=== PATIENT | female | born 1995 | race Caucasian/White ===

== ENCOUNTER 2023-11-18 13:49 | Emergency (ER) | payer MEDICAID, SELFPAY ==
[2023-11-18] VITALS (12 sets, daily range): BP systolic 88–130; BP diastolic 68–93; PULSE 58–98; RESP 15–20; TEMP 36.4–36.8; O2SAT 16–100; BMI 26.9
--- NOTE | ~2023-11-18 | CT_ITS ---
EXAMINATION: CT HEAD WITHOUT CONTRAST CLINICAL INFORMATION: Lethargy. COMPARISON: None available. TECHNIQUE: Contiguous axial imaging was performed from the skull base to vertex without intravenous administration of contrast. This CT examination was performed using dose optimization techniques as appropriate, variously including the following: *Automated exposure control. *Adjustment of mA and/or kV according to patient size (this includes techniques or standardized protocols for targeted exams where dose is matched to indication/reason for exam; i.e. extremities or head). *Use of iterative reconstruction technique. DLP: 793 mGy-cm FINDINGS: Moderately motion degraded exam. There is no evidence of acute intracranial hemorrhage or edematous territorial infarction. Haji-white matter differentiation is preserved. There is no abnormal attenuation within the brain parenchyma. The ventricles are normal in morphology and size. No evidence for obstructive hydrocephalus. No abnormal mass effect or midline shift. The suprasellar cistern remains widely patent. Normal positioning of the cerebellar tonsils. No extra-axial fluid collections. No acute soft tissue or osseous abnormalities. Mild mucosal thickening of the paranasal sinuses. The mastoid air cells and middle ear cavities are clear. CT/CT head/brain wo IV con IMPRESSION: No evidence of acute intracranial hemorrhage or edematous territorial infarction.
--- NOTE | ~2023-11-18 | XR_ITS ---
EXAMINATION: XR CHEST CLINICAL INFORMATION: Shortness of breath COMPARISON: None available. TECHNIQUE: Frontal view of the chest was obtained. FINDINGS: No significant abnormality is noted involving the heart, lungs, mediastinum, bony thorax or soft tissues. XR/XR chest 1V IMPRESSION: Unremarkable examination.
--- NOTE | 2023-11-18 14:05 | ECG_ITS ---
Test Reason : SOB Blood Pressure : / mmHG Vent. Rate : 067 BPM Atrial Rate : 067 BPM P-R Int : 116 ms QRS Dur : 080 ms QT Int : 402 ms P-R-T Axes : 026 053 036 degrees QTc Int : 424 ms Normal sinus rhythm Normal ECG No previous ECGs available Referred By: Chandler Correa Electronically Signed By:DAMIEN GRAHAM
[2023-11-18] MEDS: 0.9 % Sodium Chloride 1,000 ML 999 ML IV ×2 (14:27→17:06)
[2023-11-18 15:05] LABS: Troponin-I High Sensitivity < 2.7 ng/L (<3.5-17.0)
--- NOTE | 2023-11-18 15:35 | PC.NURSE ---
pt very different stick- three techs and RN tried. only able to get first culture set on first blood stick/iv draw, three techs tried and able to get labs and 2nd set, sent, md rios aware.
[2023-11-18 15:37] LABS: Influenza A PCR NEGATIVE (Negative); Influenza B PCR NEGATIVE (Negative); Resp Syncy Virus RNA Qual PCR NEGATIVE (Negative); SARS COV2 PCR INHOUSE NEGATIVE (Negative)
[2023-11-18 15:38] LABS: MANUAL DIFF FLAG NO
--- NOTE | 2023-11-18 15:38 | MHC.EDTECH ---
BLOOD DRAWN AND SENT TO LAB .
[2023-11-18 15:40] LABS: Basophils Absolute Auto 0.1 X10*3/uL (0.0-0.2); Basophils Percent Auto 0.6 % (0-2); Eosinophils Absolute Auto 0.5 X10*3/uL (0.0-0.4); Hematocrit 39.3 % (37.0-47.0); Hemoglobin 13.3 g/dl (12.0-16.0); Imm Gran Abs Auto 0.02 X10*3/uL (0.00-0.03); Imm Gran Pct Auto 0.2 % (0.0-0.4); Lymphocytes Percent Auto 39.5 % (20-40); Mean Corpuscular HGB Conc 33.8 g/dl (31.0-35.0); Mean Corpuscular Hemoglobin 27.5 pg (27.0-33.0); Mean Corpuscular Volume 81.4 fL (80.0-98.0); Mean Platelet Volume 9.5 fL (9.4-12.3); Monocytes Absolute Auto 0.5 X10*3/uL (0.1-1.2); Monocytes Percent Auto 4.8 % (2-11); Neutrophils Absolute Auto 5.1 x10*3/uL (2.0-8.3); Neutrophils Percent Auto 49.9 % (45-73); Platelet Count 395 X10*3/uL (160-400); Red Blood Count 4.83 X10*6/uL (4.20-5.50); White Blood Count 10.2 X10*3/uL (4.8-10.8)
[2023-11-18 15:52] LABS: Lactic Acid 0.9 mmol/L (0.5-2.0)
[2023-11-18 15:56] LABS: Alanine Aminotransferase 15 U/L (0-31); Albumin Level 3.7 g/dL (3.5-5.0); Alkaline Phosphatase 90 U/L (39-117); Anion Gap 12 (12-20); Aspartate Amino Transferase 17 U/L (5-31); Bilirubin Direct < 0.2 mg/dL (0.0-0.5); Bilirubin Total 0.2 mg/dL (0.0-1.0); Blood Urea Nitrogen 11 mg/dL (9-16); Calcium 8.8 mg/dL (8.4-10.2); Carbon Dioxide 22 mmol/L (22-29); Chloride 113 mmol/L (96-108); Creatinine Clr Calc Pharmacy 80.8; Estimated Glomerular Filt Rate > 60; Glucose Random 103 mg/dL (60-115); Lipase 36 U/L (8-78); Sodium 143 mmol/L (135-145); Total Protein 6.8 g/dL (6.5-8.0)
[2023-11-18 16:01] LABS: B Type Natriuretic Peptide < 10 pg/mL (<100)
--- NOTE | 2023-11-18 16:18 | ED_ITS ---
HPI - SOB/Dyspnea General Chief Complaint: Dyspnea Stated Complaint: from [facility], SOB and weakness x1 week Time Seen by Provider: 11/18/23 14:04 Source: patient and RN notes reviewed Mode of arrival: ambulatory Limitations: no limitations History of Present Illness HPI Narrative: This is a 27-year-old female, with a history of depression, presenting to the emergency department from [facility] with complaints of shortness of breath and weakness x2 weeks. Patient states that she developed a cough, and cold-like symptoms. She states that her symptoms have not improved over the course of this last 2 weeks. She states that shortness of breath is intermittent. She denies any fevers, chills, chest pain, palpitations, nausea, vomiting or diarrhea. She states that this morning she felt slightly lightheaded with a headache and dizziness. This resolved after receiving her medications. No other complaints or concerns at this time. MD elicited complaint: shortness of breath and cough Timing: constant Exacerbating factors: nothing Relieving factors: nothing Treatment prior to arrival: none Related Data Home oxygen amount: none Allergies Allergy/AdvReac Type Severity Reaction Status Date / Time No Known Allergies Allergy Verified 11/18/23 14:04 Review of Systems 2 Review of Systems: Yes all other systems are reviewed and are negative Constitutional: Constitutional: Reports as per [facility] Social History Social History Substance Use Type: Marijuana and Opiates Substance Use Frequency Other:: daily marijuana, last opiate use 4 days ago Advance Directives: No Physical Exam 2 Vital Signs: Vital Signs: Last Vital Signs Temp 97.6 F 11/18/23 19:17 Pulse 69 11/18/23 19:17 Resp 20 11/18/23 19:17 BP 130/93 H 11/18/23 19:17 Pulse Ox 100 11/18/23 19:17 O2 Del Method Room Air 11/18/23 19:17 BMI result Body Mass Index 26.9 Const: General: cooperative, comfortable and no acute distress O rientation/consciousness: patient oriented x3 Limitations: no limitations HEENT: Head: Yes normal to inspection, Yes normocephalic and Yes atraumatic Ears: hearing grossly normal bilaterally and TM's normal bilaterally General nose exam: Normal external nose present Face and sinus: Yes normal facial exam Mouth: Normal oral and palatal mucosa present, oropharynx normal and moist mucous membranes Throat: Yes posterior oropharynx normal Eyes: General: appearance normal, both eyes and all related structures E yelids: Yes eyelids normal Conjunctivae: conjunctivae normal Sclerae: s clerae normal Pupils: Equal, round and reactive pupils present EOM: EOMs intact bilaterally Neck: Neck: Yes normal visual inspection, Yes full ROM and Yes no lymphadenopathy Lymphatic: no lymphadenopathy noted Chest: Chest palpation & inspection: normal inspection of the chest Resp: Effort & Inspection: normal respiratory effort and able to speak in complete sentences Auscultation: clear to auscultation bilaterally, no crackles, no rales, no rhonchi and no wheezes Cardio: Rate: regular rate Rhythm: regular rhythm Heart sounds: S1 normal heart sound present and S2 normal heart sound present GI: Other: Abdomen is soft, nontender, nondistended Inspection: Yes normal to inspection Skin: General skin exam: no rashes or lesions noted Trauma: no lacerations or abrasions Wounds: no wounds Neuro: General: patient oriented x3 and moves all extremities Cranial nerves: Yes Equal, round and reactive pupils present Extrem: General: Yes normal to inspection Right upper extremity: normal to inspection Left upper extremity: normal to inspection Right lower extremity: normal to inspection Left lower extremity: normal to inspection Course Reevaluation(s) Reevaluation #1: Patient re-evaluated, feeling much better. She received 2 L of IV fluids. She is awake and alert. She is eating and drinking without difficulty. Respirations normal. Urine positive for fentanyl, and benzodiazepines as well as marijuana. She tested negative for viral swabs. Head CT unremarkable chest CT unremarkable. EKG within normal limits. Discussed workup with patient. She understands and agrees with plan. Time: 20:11 Medications Administered Discontinued Medications Generic Name Dose Route Start Last Admin Trade Name Freq PRN Reason Stop Dose Admin Sodium Chloride 1,000 mls @ 999 mls/hr 11/18/23 14:04 11/18/23 17:05 Ns IV 11/18/23 15:04 Infused .Q1H1M ONE Infusion Sodium Chloride 1,000 mls @ 999 mls/hr 11/18/23 16:49 11/18/23 19:09 Ns IV 11/18/23 17:49 Infused .Q1H1M ONE Infusion Medical Decision Making Medical Decision Making [facility] Narrative: This is a 27-year-old female, with a history of depression, presenting to the emergency department for evaluation of shortness of breath and cough. Patient is coming from your [place] where she arrived there last night. Patient states that she has been sick for the last 2 weeks and states that her symptoms have worsened over the past 12 hours. She has no history of asthma. CO2 27. She is originally from [facility] therefore we do not have any records. Patient appears slightly tired, she is requesting anxiety medications however she is very calm and cooperative therefore I do not think that she needs any at this time. Lungs are clear to auscultation. Labs, EKG, chest x-ray, drug screen, UA ordered. She is PERC negative. She has not hypoxic or tachycardic. Differential Diagnosis Differential Diagnoses: The differential diagnosis associated with the presentation includes URI, COVID, flu, pneumonia Admission/Observation Consideration of admission/observation: Escalation of care including admission/observation considered Escalation of care including admission/observation considered however given workup today not warranted at this time. Lab Data MDM Lab Attestation statement: I reviewed the patient's lab results. No leukocytosis, stable H&H, chemistry within normal limits. Viral swabs unremarkable 11/18/23 15:35 11/18/23 15:35 Labs: Lab Results 11/18/23 11/18/23 11/18/23 Range/Units 14:33 14:52 15:35 WBC 10.2 (4.8-10.8) X10*3/uL RBC 4.83 (4.20-5.50) X10*6/uL Hgb 13.3 (12.0-16.0) g/dl Hct 39.3 (37.0-47.0) % MCV 81.4 (80.0-98.0) fL MCH 27.5 (27.0-33.0) pg MCHC 33.8 (31.0-35.0) g/dl RDW 14.0 (11.0-16.0) % Plt Count 395 (160-400) X10*3/uL MPV 9.5 (9.4-12.3) fL Immature Gran % (Auto) 0.2 (0.0-0.4) % Neut % (Auto) 49.9 (45-73) % Lymph % (Auto) 39.5 (20-40) % [place] % (Auto) 4.8 (2-11) % Eos % (Auto) 5.0 H (0-4) % Baso % (Auto) 0.6 (0-2) % Lymph # (Auto) 4.0 (1.2-4.9) X10*3/uL [place] # (Auto) 0.5 (0.1-1.2) X10*3/uL Eos # (Auto) 0.5 H (0.0-0.4) X10*3/uL Baso # (Auto) 0.1 (0.0-0.2) X10*3/uL Abs Immat Gran (auto) 0.02 (0.00-0.03) X10*3/uL Absolute Neuts (auto) 5.1 (2.0-8.3) x10*3/uL Absolute Nucleated RBC 0.000 (0.0-0.012) X10*3/uL Nucleated RBC % (auto) 0.0 (0.0-0.2) /100WBC VBG pH (7.32-7.43) VBG pCO2 mmHg VBG pO2 mmHg VBG HCO3 (22-26) mmol/L VBG O2 Saturation % VBG Base Excess mmol/L Sodium 143 (135-145) mmol/L Potassium 4.0 (3.3-5.1) mmol/L Chloride 113 H (96-108) mmol/L Carbon Dioxide 22 (22-29) mmol/L Anion Gap 12 (12-20) BUN 11 (9-16) mg/dL Creatinine 0.79 (0.5-1.4) mg/dL Estim Creat Clear Calc 80.8 Estimated GFR > 60 Random Glucose 103 (60-115) mg/dL Lactic Acid 0.9 (0.5-2.0) mmol/L Calcium 8.8 (8.4-10.2) mg/dL Total Bilirubin 0.2 (0.0-1.0) mg/dL Direct Bilirubin < 0.2 (0.0-0.5) mg/dL AST 17 (5-31) U/L ALT 15 (0-31) U/L Alkaline Phosphatase 90 (39-117) U/L Troponin I High Sens < 2.7 (<3.5-17.0) ng/L B-Natriuretic Peptide < 10 (<100) pg/mL Total Protein 6.8 (6.5-8.0) g/dL Albumin 3.7 (3.5-5.0) g/dL Lipase 36 (8-78) U/L Beta HCG, Quant < 2 mIU/mL Urine Color Urine Appearance Urine pH (5.0-9.0) Ur Specific [place] (1.005-1.025) Urine Protein (Neg-Trace) mg/dL Urine Glucose (UA) (Negative) mg/dL Urine Ketones (Negative) mg/dL Urine Blood (Negative) Urine Nitrite (Negative) Ur Leukocyte Esterase (Negative) Urine RBC (0-2) /HPF Urine WBC (0-5) /HPF Ur Squamous Epith Cells (0-2) /HPF Urine Bacteria (None Seen) Hyaline Casts (0-2) /LPF Urine Test (NEGATIVE) Urine Opiates Screen (Not Detect) Urine Fentanyl Screen (Not Detect) Ur Barbiturates Screen (Not Detect) Ur Phencyclidine Scrn (Not Detect) Ur Amphetamines Screen (Not Detect) U Benzodiazepines Scrn (Not Detect) Urine Cocaine Screen (Not Detect) U Marijuana (THC) Screen (Not Detect) Ethyl Alcohol < 10 mg/dL Influenza Type A (PCR) NEGATIVE (Negative) Influenza Type B (PCR) NEGATIVE (Negative) RSV RNA Qual (PCR) NEGATIVE (Negative) SARS-CoV-2 RNA (RT-PCR) NEGATIVE (Negative) 11/18/23 11/18/23 Range/Units 16:46 18:53 WBC (4.8-10.8) X10*3/uL RBC (4.20-5.50) X10*6/uL Hgb (12.0-16.0) g/dl Hct (37.0-47.0) % MCV (80.0-98.0) fL MCH (27.0-33.0) pg MCHC (31.0-35.0) g/dl RDW (11.0-16.0) % Plt Count (160-400) X10*3/uL MPV (9.4-12.3) fL Immature Gran % (Auto) (0.0-0.4) % Neut % (Auto) (45-73) % Lymph % (Auto) (20-40) % [place] % (Auto) (2-11) % Eos % (Auto) (0-4) % Baso % (Auto) (0-2) % Lymph # (Auto) (1.2-4.9) X10*3/uL [place] # (Auto) (0.1-1.2) X10*3/uL Eos # (Auto) (0.0-0.4) X10*3/uL Baso # (Auto) (0.0-0.2) X10*3/uL Abs Immat Gran (auto) (0.00-0.03) X10*3/uL Absolute Neuts (auto) (2.0-8.3) x10*3/uL Absolute Nucleated RBC (0.0-0.012) X10*3/uL Nucleated RBC % (auto) (0.0-0.2) /100WBC VBG pH 7.42 (7.32-7.43) VBG pCO2 33 mmHg VBG pO2 123 mmHg VBG HCO3 22 (22-26) mmol/L VBG O2 Saturation 100.0 % VBG Base Excess -1.2 mmol/L Sodium (135-145) mmol/L Potassium (3.3-5.1) mmol/L Chloride (96-108) mmol/L Carbon Dioxide (22-29) mmol/L Anion Gap (12-20) BUN (9-16) mg/dL Creatinine (0.5-1.4) mg/dL Estim Creat Clear Calc Estimated GFR Random Glucose (60-115) mg/dL Lactic Acid (0.5-2.0) mmol/L Calcium (8.4-10.2) mg/dL Total Bilirubin (0.0-1.0) mg/dL Direct Bilirubin (0.0-0.5) mg/dL AST (5-31) U/L ALT (0-31) U/L Alkaline Phosphatase (39-117) U/L Troponin I High Sens (<3.5-17.0) ng/L B-Natriuretic Peptide (<100) pg/mL Total Protein (6.5-8.0) g/dL Albumin (3.5-5.0) g/dL Lipase (8-78) U/L Beta HCG, Quant mIU/mL Urine Color Yellow Urine Appearance Clear Urine pH 6.0 (5.0-9.0) Ur Specific [place] 1.010 (1.005-1.025) Urine Protein Negative (Neg-Trace) mg/dL Urine Glucose (UA) Negative (Negative) mg/dL Urine Ketones Negative (Negative) mg/dL Urine Blood Large (3+) H (Negative) Urine Nitrite Negative (Negative) Ur Leukocyte Esterase Trace H (Negative) Urine RBC >20 H (0-2) /HPF Urine WBC 0-5 (0-5) /HPF Ur Squamous Epith Cells 3-5 (0-2) /HPF Urine Bacteria Trace (None Seen) Hyaline Casts 0-2 (0-2) /LPF Urine Test NEGATIVE (NEGATIVE) Urine Opiates Screen Not Detected (Not Detect) Urine Fentanyl Screen POSITIVE H (Not Detect) Ur Barbiturates Screen Not Detected (Not Detect) Ur Phencyclidine Scrn Not Detected (Not Detect) Ur Amphetamines Screen Not Detected (Not Detect) U Benzodiazepines Scrn POSITIVE H (Not Detect) Urine Cocaine Screen Not Detected (Not Detect) U Marijuana (THC) Screen POSITIVE H (Not Detect) Ethyl Alcohol mg/dL Influenza Type A (PCR) (Negative) Influenza Type B (PCR) (Negative) RSV RNA Qual (PCR) (Negative) SARS-CoV-2 RNA (RT-PCR) (Negative) Independent Interpretation I performed an independent interpretation of an: EKG and Plain X-Ray Interpretation: EKG normal sinus rhythm at a ventricular rate of 67 beats per minute, MA interval 116, QTC 424, no ST elevation or depression. I reviewed the chest x-ray and agree with radiology report. Radiology Impression Discussion of test interpretation with radiology: I have reviewed the radiologist's reading. Radiologist Impression: FINDINGS: Moderately motion degraded exam. There is no evidence of acute intracranial hemorrhage or edematous territorial infarction. Haji-white matter differentiation is preserved. There is no abnormal attenuation within the brain parenchyma. The ventricles are normal in morphology and size. No evidence for obstructive hydrocephalus. No abnormal mass effect or midline shift. The suprasellar cistern remains widely patent. Normal positioning of the cerebellar tonsils. No extra-axial fluid collections. No acute soft tissue or osseous abnormalities. Mild mucosal thickening of the paranasal sinuses. The mastoid air cells and middle ear cavities are clear. CT/CT head/brain wo IV con IMPRESSION: No evidence of acute intracranial hemorrhage or edematous territorial infarction. Dictated By: Alec Abrams DO Signed By: <Electronically signed EXAMINATION: XR CHEST CLINICAL INFORMATION: Shortness of breath COMPARISON: None available. TECHNIQUE: Frontal view of the chest was obtained. FINDINGS: No significant abnormality is noted involving the heart, lungs, mediastinum, bony thorax or soft tissues. XR/XR chest 1V IMPRESSION: Unremarkable examination. Dictated By: Shashi Lafleur MD Discharge Plan Discharge Clinical Impression: Viral illness, Substance abuse, Orthostatic hypotension Patient Disposition: Xfer Psychiatric Hosp Instructions: Viral Syndrome (ED), Polysubstance Abuse (ED) Additional Instructions: You were seen in the emergency department due to cough. Your symptoms are likely due to a virus. It is important to get plenty of rest, drink plenty of fluids. Your x-ray does not show a pneumonia. Your urine does not appear to be contaminated. You tested positive for benzos, marijuana, and fentanyl. You tested negative for flu, RSV, and COVID. Your head CT was unremarkable. Your EKG was reassuring. We medicated with IV fluids in the department today. If any new or worsening symptoms occur including but not limited to chest pain, shortness of breath please return for re-evaluation.
[2023-11-18 16:52] LABS: Venous Blood Gas Refer to POC result
[2023-11-18 16:53] LABS: VBG Base Excess -1.2 mmol/L; VBG HCO3 22 mmol/L (22-26); VBG pCO2 33 mmHg; VBG pH 7.42 (7.32-7.43); VBG pO2 123 mmHg
[2023-11-18 16:57] LABS: Ethanol < 10 mg/dL
--- NOTE | 2023-11-18 17:30 | PC.NURSE ---
1ST LITER OF FLUIDS ENDED AT 1545. MAR DOCUMENTATION SYSTEM NOT ALLOWING TO EDIT.
[2023-11-18 17:37] LABS: HCG Quantitative < 2 mIU/mL
[2023-11-18 19:17] LABS: UPreg QC Valid YES; Urine Pregnancy NEGATIVE (NEGATIVE)
[2023-11-18 19:19] LABS: Appearance Urine Clear; Color Urine Yellow; Glucose Urine UA Negative (Negative); Leukocyte Esterase Urine Trace (Negative); Nitrite Urine Negative (Negative); UMIC TRIGGER UACC YES; Urine Blood Large (3+) (Negative); Urine Ketones Negative (Negative); Urine Protein Negative (Neg-Trace)
--- NOTE | 2023-11-18 19:21 | PC.NURSE ---
Assumed care of pt. Pt sitting upright on stretcher, alert this RN, though sppears mildly delayed in responses. provided dinner tray per provider, pending urine results for dispo.
[2023-11-18 19:23] LABS: Amphetamine Screen Urine Not Detected (Not Detect); Bacteria Urine Trace (None Seen); Barbiturates, Urine Not Detected (Not Detect); Benzodiazepines Screen Urine POSITIVE (Not Detect); Cannabinoid Screen Urine POSITIVE (Not Detect); Cocaine Screen Urine Not Detected (Not Detect); Fentanyl, urine POSITIVE (Not Detect); Hyaline Casts Urine 0-2 /LPF (0-2); Opiate Screen Urine Not Detected (Not Detect); Phencyclidine Screen Urine Not Detected (Not Detect); RBC Urine >20 /HPF (0-2); WBC Urine 0-5 /HPF (0-5)
--- NOTE | 2023-11-18 19:56 | PC.NURSE ---
Rcvd call from Amaury Belle RN, gave update on pt status.
== END 2023-11-18 23:36 | disposition home or self-care (01) ==
PROVIDERS: Emergency Medicine; Physician Assistant Medical; Emergency Provider Emergency Medicine
DX: B34.9 Viral infection, unspecified (principal); R06.02 Shortness of breath; I95.1 Orthostatic hypotension; R53.1 Weakness; R05.9 Cough, unspecified; R51.9 Headache, unspecified; F11.10 Opioid abuse, uncomplicated; Z11.52 Encounter for screening for COVID-19; Z20.822 Contact with and (suspected) exposure to COVID-19; Z79.899 Other long term (current) drug therapy
CPT/HCPCS: 0241U; 36415; 70450; 71045; 80048; 80076; 80307; 81001; 81025; 82803; 83605; 83690; 83880; 84484; 84702; 85025; 87040; 93005; 96360; 96361; 99285

== ENCOUNTER → 2023-11-18 14:05 | Outpatient (BNV) | payer MEDICAID, SELFPAY | PROVIDERS: Emergency Provider Emergency Medicine; Visit Provider Internal Medicine | DX: R06.02 Shortness of breath (principal) | CPT/HCPCS: 93010 ==

== ENCOUNTER 2024-02-05 15:13 | Inpatient (IN) | payer MEDICAID, OTHER, SELFPAY ==
[2024-02-05] VITALS (10 sets, daily range): BP systolic 115–137; BP diastolic 74–87; PULSE 76–86; RESP 16–20; TEMP 36.2–36.6; O2SAT 96–100; BMI 24.6
--- NOTE | 2024-02-05 16:07 | ED_ITS ---
HPI - Psych General Chief Complaint: Psychiatric Symptoms Stated Complaint: SEC 12 SI,FROM [facility] PER EMS Time Seen by Provider: 02/05/24 16:00 History of Present Illness HPI Narrative: 28 years old with history of prior SI attempt, opiate use disorder, presented to the emergency room from recovery program, patient reports she went there today to detox, on point she decided to leave but at the same time need SI state for which patient was placed on section 12 and brought to the emergency room. On arrival patient is cooperative, denies active SI, reports however that sometimes she feels like she wants to but at this time does not have a plan. Denies HI or hallucination. Denies use of chronic alcohol and reports that she use Percocet almost daily. Denies abdominal pain nausea or vomiting. LMP was 2 days ago No chest pain, shortness of breath, cough, chills fever headache or blurry vision. No reported trauma. Related Data Home Medications ?Medication ?Instructions ?Recorded ?Confirmed albuterol sulfate 90 mcg/actuation 2 puff inhalation Q6H PRN wheezing 02/05/24 02/05/24 aerosol inhaler (Ventolin HFA) clonazepam 1 mg tablet 1 mg PO USEASDIRECTD PRN Anxiety 02/05/24 02/05/24 lurasidone 20 mg tablet 20 mg PO BEDTIME 02/05/24 02/05/24 olanzapine 5 mg tablet 5 mg PO BEDTIME 02/05/24 02/05/24 prazosin 1 mg capsule 1 mg PO BEDTIME 02/05/24 02/05/24 sertraline 50 mg tablet 50 mg PO DAILY 02/05/24 02/05/24 Allergies Allergy/AdvReac Type Severity Reaction Status Date / Time No Known Allergies Allergy Verified 02/05/24 15:53 Review of Systems 2 Review of Systems: Yes all other systems are reviewed and are negative PMFSH Social History Social History Smoked in Last 30 Days: Yes Use of substances other than those prescribed or required for medical reasons: Yes Substance Use Type: Marijuana Substance Use Frequency: Daily Advance Directives: No Advance Directives Information Provided: No Do you have a plan to hurt others: No Plan Patient : No Physical Exam 2 Vital Signs: Vital Signs: Last Vital Signs Temp 97.1 F 02/05/24 15:53 Pulse 76 02/05/24 15:53 Resp 16 02/05/24 16:39 BP 115/74 02/05/24 15:53 Pulse Ox 100 02/05/24 15:53 O2 Del Method Room Air 02/05/24 15:53 BMI result Body Mass Index 24.6 General: Alert, Not in Distress Skin: No rash, warm HEENT: Atraumatic, No Exudate or Pharyngeal Erythema Resp: Normal Breath sounds bilaterally Cardio: Regular rate and Rhythm, Normal S1, S2 ABD: Abd soft, non tender, no guarding or rebound. Normal Bowel sounds. : No cva tenderness Neuro: Alert, oriented x4, PERRL Strenght 5/5 on all extremities Sensation is preserved in both lower and upper extremities Index to nose: normal Cranial Nerves II-XII grossly intact No dysarthria, or aphasia No neglet. Visual meek are normal bilaterally Psych: Cooperative, No active SI Course Reevaluation(s) Reevaluation #1: Agitated, tries to leave, requires restraints. Refuses to give urine. Time: 20:15 Reevaluation #2: Will sign out to Dr. Mayes pending UA tox, urine and crisis evaluation. Time: 20:37 Medications Administered Discontinued Medications Generic Name Dose Route Start Last Admin Trade Name Freq PRN Reason Stop Dose Admin Clonazepam 1 mg 02/05/24 18:00 02/05/24 18:02 Clonazepam 1 Mg Tablet PO 02/05/24 18:01 Not Given ONCE ONE Clonazepam 1 mg 02/05/24 18:00 02/05/24 18:02 Clonazepam 1 Mg Tablet PO 02/05/24 18:01 1 mg ONCE ONE Administration Medical Decision Making Medical Decision Making [facility] Narrative: Hemodynamically stable Sectioned for SI with plan Plan Medical clearance Lab Data 02/05/24 16:22 02/05/24 16:22 Labs: Lab Results 02/05/24 Range/Units 16:22 WBC 11.2 H (4.8-10.8) X10*3/uL RBC 5.03 (4.20-5.50) X10*6/uL Hgb 14.0 (12.0-16.0) g/dl Hct 41.3 (37.0-47.0) % MCV 82.1 (80.0-98.0) fL MCH 27.8 (27.0-33.0) pg MCHC 33.9 (31.0-35.0) g/dl RDW 14.6 (11.0-16.0) % Plt Count 374 (160-400) X10*3/uL MPV 9.8 (9.4-12.3) fL Immature Gran % (Auto) 0.3 (0.0-0.4) % Neut % (Auto) 62.7 (45-73) % Lymph % (Auto) 31.1 (20-40) % [place] % (Auto) 4.1 (2-11) % Eos % (Auto) 1.4 (0-4) % Baso % (Auto) 0.4 (0-2) % Lymph # (Auto) 3.5 (1.2-4.9) X10*3/uL [place] # (Auto) 0.5 (0.1-1.2) X10*3/uL Eos # (Auto) 0.2 (0.0-0.4) X10*3/uL Baso # (Auto) 0.0 (0.0-0.2) X10*3/uL Abs Immat Gran (auto) 0.03 (0.00-0.03) X10*3/uL Absolute Neuts (auto) 7.0 (2.0-8.3) x10*3/uL Absolute Nucleated RBC 0.000 (0.0-0.012) X10*3/uL Nucleated RBC % (auto) 0.0 (0.0-0.2) /100WBC Sodium 142 (135-145) mmol/L Potassium 3.6 (3.3-5.1) mmol/L Chloride 106 (96-108) mmol/L Carbon Dioxide 26 (22-29) mmol/L Anion Gap 14 (12-20) BUN 11 (9-16) mg/dL Creatinine 0.81 (0.5-1.4) mg/dL Estim Creat Clear Calc 85.3 Estimated GFR > 60 Random Glucose 86 (60-115) mg/dL Calcium 9.4 D (8.4-10.2) mg/dL Total Bilirubin 0.4 (0.0-1.0) mg/dL AST 20 (5-31) U/L ALT 15 (0-31) U/L Alkaline Phosphatase 84 (39-117) U/L Total Protein 7.8 (6.5-8.0) g/dL Albumin 4.3 (3.5-5.0) g/dL Salicylates < 5.0 L (15-30) mg/dL Acetaminophen < 3 (<30) mcg/mL Ethyl Alcohol < 10 mg/dL Discharge Plan Discharge Clinical Impression: Depression Patient Disposition: Still a Patient Prescriptions: No Action prazosin 1 mg capsule 1 mg PO BEDTIME olanzapine 5 mg tablet 5 mg PO BEDTIME clonazepam 1 mg tablet 1 mg PO USEASDIRECTD PRN (Reason: Anxiety) albuterol sulfate [Ventolin HFA] 90 mcg/actuation HFA aerosol inhaler 2 puff inhalation Q6H PRN (Reason: wheezing) sertraline 50 mg tablet 50 mg PO DAILY lurasidone 20 mg tablet 20 mg PO BEDTIME Interventions: [place]-Suicide Risk Severity Scale Last Done: 02/05/24 16:39 Print Language: Ugandan
[2024-02-05 16:27] LABS: MANUAL DIFF FLAG NO
[2024-02-05 16:28] LABS: Basophils Percent Auto 0.4 % (0-2); Eosinophils Absolute Auto 0.2 X10*3/uL (0.0-0.4); Eosinophils Percent Auto 1.4 % (0-4); Hematocrit 41.3 % (37.0-47.0); Imm Gran Abs Auto 0.03 X10*3/uL (0.00-0.03); Imm Gran Pct Auto 0.3 % (0.0-0.4); Lymphocytes Absolute Auto 3.5 X10*3/uL (1.2-4.9); Lymphocytes Percent Auto 31.1 % (20-40); Mean Corpuscular HGB Conc 33.9 g/dl (31.0-35.0); Mean Corpuscular Hemoglobin 27.8 pg (27.0-33.0); Mean Corpuscular Volume 82.1 fL (80.0-98.0); Mean Platelet Volume 9.8 fL (9.4-12.3); Monocytes Absolute Auto 0.5 X10*3/uL (0.1-1.2); Monocytes Percent Auto 4.1 % (2-11); Neutrophils Percent Auto 62.7 % (45-73); Platelet Count 374 X10*3/uL (160-400); Red Blood Count 5.03 X10*6/uL (4.20-5.50); Red Cell Distribution Width 14.6 % (11.0-16.0); White Blood Count 11.2 X10*3/uL (4.8-10.8)
--- NOTE | 2024-02-05 16:30 | PC.NURSE ---
pt changed over into [facility] attire by security. belongings obtained/placed in locker #4. security obtained pocket knife, red bull can, marijuana, case of marijuana and placed it in their office for when she is discharged. pt currently denies SI/HI. 1:1 sitter present for safety precautions.
[2024-02-05 16:51] LABS: Alanine Aminotransferase 15 U/L (0-31); Albumin Level 4.3 g/dL (3.5-5.0); Alkaline Phosphatase 84 U/L (39-117); Anion Gap 14 (12-20); Aspartate Amino Transferase 20 U/L (5-31); Bilirubin Total 0.4 mg/dL (0.0-1.0); Blood Urea Nitrogen 11 mg/dL (9-16); Calcium 9.4 mg/dL (8.4-10.2); Carbon Dioxide 26 mmol/L (22-29); Chloride 106 mmol/L (96-108); Creatinine Clr Calc Pharmacy 85.3; Estimated Glomerular Filt Rate > 60; Glucose Random 86 mg/dL (60-115); Potassium 3.6 mmol/L (3.3-5.1); Sodium 142 mmol/L (135-145); Total Protein 7.8 g/dL (6.5-8.0)
[2024-02-05 16:53] LABS: Acetaminophen LAB < 3 mcg/mL (<30); Salicylate < 5.0 mg/dL (15-30)
--- NOTE | 2024-02-05 16:54 | PC.NURSE ---
Addendum entered by Sujey Callahan 02/06/24 07:47: Late entry: This RN requesting urine sample from patient at around 1800, patient refused Original Note: Assumed care of patient at approximately 1640, patient coming from ED 13H. Patient obviously frustrated with this RN upon arrival. Patient reports that she has a 5 month old puppy at home that she needs to take care of and cannot be here. Patient denies SI/HI. Patient is aware she is on a Section 12 at this time. Pending CARE eval at this time. This RN offered medications to patient, patient declined
[2024-02-05] MEDS: clonazePAM 1 MG TABLET PO (18:02)
[2024-02-05 18:54] LABS: Ethanol < 10 mg/dL
--- NOTE | 2024-02-05 21:05 | PC.NURSE ---
Late entry: PT attempting to elope multiple times by pressing on the exit doors of the unit. PT redirected by staff, pt became increasingly agitated stating that she wanted to leave and was told that she would be able to speak with care team today. Pt was reminded that she was seen by [facility]d and was on a section so the plan as iterated by day shift RN, Jessica, was for care team to follow up in the morning. Security called to unit to help deescalate. PT approached Care team door yelling that she wanted to speak to her psych doctor. PT was blocking the door and kicked it multiple times. PT stated you all are going to find me in the morning . T/W attempted to deescalate the PT by offering to talk in her room or in the common area to vent feelings, food and drinks offered as well. PT declined and yelled at t/w several of time. PT given multiple opportunities to walk away from the care team door on her own but PT refused and sat down. After given another opportunity to move and pt refused, security was forced to physically escort pt to her room and placed her in four point restraints for safety. While in restraints pt threatening staff, attempting to bite staff and attempting to get out of restraints. PT release from restraints at 2105 as pt was calm and cooperative. PT released without issue. Safety precautions in place, Plan of care ongoing
[2024-02-05] MEDS: OLANZapine 5 MG TABLET PO (21:48)
[2024-02-05 22:02] LABS: HCG Quantitative < 2 mIU/mL
[2024-02-05] MEDS: Prazosin HCL 1 MG CAPSULE PO (22:11)
[2024-02-05] MEDS: Lurasidone HCl 20 MG TABLET PO (22:11)
--- NOTE | 2024-02-06 | ECG_ITS ---
Test Reason : CHEST PAIN Blood Pressure : / mmHG Vent. Rate : 086 BPM Atrial Rate : 086 BPM P-R Int : 124 ms QRS Dur : 078 ms QT Int : 378 ms P-R-T Axes : 082 050 040 degrees QTc Int : 452 ms Normal sinus rhythm Possible Left atrial enlargement Borderline ECG When compared with ECG of 18-NOV-2023 14:35, No significant change was found Referred By: Imer Braun Electronically Signed By:DAMIEN GRAHAM
--- NOTE | 2024-02-06 07:43 | PC.NURSE ---
Assumed care of patient at 0645, patient appears to be resting on bed at this time. Patient was sitting in hallway, intently staring at this RN, appearing angry. Patient not engaging in conversation with this RN. Behavior similar to last night. Plan if for patient to be admitted today
--- NOTE | 2024-02-06 07:47 | PC.NURSE ---
Patient refusing urine sample at this time
[2024-02-06] MEDS: Sertraline HCL 50 MG TABLET PO (08:43)
[2024-02-06] MEDS: clonazePAM 1 MG TABLET PO ×2 (08:46→20:26)
--- NOTE | 2024-02-06 08:49 | PC.NURSE ---
Patient spoke with Ashli from Care Team. Appears much calmer now. Agreeable to vitals and medications. Plan is now for psych to see the patient and determine appropriate disposition
[2024-02-06 08:54] VITALS: BP 114/83; PULSE 90; RESP 14; TEMP 36.1; O2SAT 99
--- NOTE | 2024-02-06 11:00 | MHC.CARE ---
Patient seen by the CARE team, she is IPLOC. At this time, not voluntary.
--- NOTE | 2024-02-06 12:07 | PC.NURSE ---
Patient was told she was had to stay for inpatient care, security on standby. Patient handled information well without issue, now laying back down in bed, no medications necessary at this time
--- NOTE | 2024-02-06 12:40 | MHC.EDTECH ---
belongings in locker 6
[2024-02-06] MEDS: OLANZapine 10 MG TABLET PO (12:49)
--- NOTE | 2024-02-06 13:56 | MHC.CARE ---
Patient has been accepted to [facility] for 02/07/2024 ETA 9am. Accepting provider is Dr. Candy Hawthorne N2N# is [phone]. I spoke to Dalton @[facility] on 02/06/2024.
[2024-02-06 14:00] VITALS: RESP 16
--- NOTE | 2024-02-06 17:35 | PC.NURSE ---
RE; med rec This Rn updated med rec with medication list that was faxed over from patient's provider
--- NOTE | 2024-02-06 19:32 | PC.NURSE ---
patient appears at rest lounging in common area, appears in no distress
[2024-02-06] MEDS: Amitriptyline HCl 25 MG TABLET PO (20:18)
[2024-02-06] MEDS: Lurasidone HCl 20 MG TABLET PO (20:18)
[2024-02-06] MEDS: Buprenorphine/Naloxone 12/3 mg FILM 1 FILM SUBLINGUAL (20:19)
[2024-02-06] MEDS: OLANZapine 5 MG TABLET PO (20:20)
[2024-02-06] MEDS: Prazosin HCL 1 MG CAPSULE PO (20:20)
[2024-02-06] MEDS: Prazosin HCL 1 MG CAPSULE 8 MG PO (20:20)
[2024-02-06 20:35] VITALS: BP 137/100; PULSE 94; RESP 16; TEMP 36.7; O2SAT 99
--- NOTE | 2024-02-06 22:19 | PC.NURSE ---
patient reported CP and lethargy, VSS, reported nausea then one episode of vomiting, 02 sat 96 pct. t/w speculates possibly client may not have been taking suboxone full dose...may have precip wd.
[2024-02-06 22:37] LABS: Amphetamine Screen Urine Not Detected (Not Detect); Barbiturates, Urine Not Detected (Not Detect); Benzodiazepines Screen Urine POSITIVE (Not Detect); Buprenorphine Scr Not Detected (Not Detect); Cannabinoid Screen Urine POSITIVE (Not Detect); Cocaine Screen Urine Not Detected (Not Detect); Fentanyl, urine Not Detected (Not Detect); Methadone Screen, Urine Not Detected (Not Detect); Opiate Screen Urine Not Detected (Not Detect); Oxycodone Screen Urine Not Detected (Not Detect); Phencyclidine Screen Urine Not Detected (Not Detect)
[2024-02-06 22:49] LABS: UPreg QC Valid YES; Urine Pregnancy NEGATIVE (NEGATIVE)
[2024-02-07 00:27] LABS: Appearance Urine Turbid; Color Urine Dark Yellow; Glucose Urine UA Negative (Negative); Leukocyte Esterase Urine Large (3+) (Negative); Nitrite Urine Negative (Negative); Specific Gravity - Urine >= 1.030 (1.005-1.025); UMIC TRIGGER UACC YES; Urine Blood Negative (Negative); Urine Ketones Trace mg/dL (Negative); Urine Protein 30 (1+) mg/dL (Neg-Trace)
[2024-02-07 00:34] LABS: Bacteria Urine 4+ (None Seen); RBC Urine 0-2 /HPF (0-2); UACC Culture Trigger YES; WBC Urine >50 /HPF (0-5)
[2024-02-07 01:35] VITALS: BP 127/78; PULSE 97; RESP 18; TEMP 35.9; O2SAT 97
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
[2024-02-07 08:00] VITALS: BP 130/72; PULSE 90; RESP 16; TEMP 36.2; O2SAT 93
[2024-02-07 08:20] LABS: Estimated Average Glucose 114 mg/dL; Hemoglobin A1c % 5.6 % (<6.0)
[2024-02-07 08:38] LABS: Cholesterol 99 mg/dL (<200); HDL Cholesterol 36 mg/dL (>40); LDL Cholesterol Calculated 54 mg/dL (<100); Triglycerides 49 mg/dL (<150)
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
[2024-02-07] MEDS: clonazePAM 1 MG TABLET PO ×2 (15:30→19:38)
[2024-02-07 19:36] VITALS: BP 123/85
[2024-02-07] MEDS: Prazosin HCL 1 MG CAPSULE PO (19:36)
[2024-02-07] MEDS: Lurasidone HCl 20 MG TABLET PO (19:36)
[2024-02-07 19:38] VITALS: BP 123/85
[2024-02-07] MEDS: hydrOXYzine HCL 25 MG TABLET PO (19:38)
[2024-02-07] MEDS: OLANZapine 5 MG TABLET PO (19:38)
[2024-02-07] MEDS: Prazosin HCL 1 MG CAPSULE 8 MG PO (19:38)
[2024-02-07] MEDS: traZODone HCL 50 MG TABLET PO ×2 (19:46→21:13)
[2024-02-07 20:00] VITALS: BP 123/85; PULSE 79; RESP 18; TEMP 36.6; O2SAT 99
[2024-02-08 07:00] VITALS: BMI 23.3
[2024-02-08] MEDS: clonazePAM 1 MG TABLET PO ×2 (09:14→17:57)
[2024-02-08] MEDS: hydrOXYzine HCL 25 MG TABLET PO (09:14)
[2024-02-08] MEDS: Buprenorphine/Naloxone 12/3 mg FILM 1 FILM SUBLINGUAL (09:14)
[2024-02-08 09:24] VITALS: BP 116/61; PULSE 130; RESP 20; TEMP 36.7; O2SAT 98
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
[2024-02-08] MEDS: Prazosin HCL 1 MG CAPSULE 8 MG PO (19:55)
[2024-02-08 20:00] VITALS: BP 134/61; PULSE 107; TEMP 36.4; O2SAT 99
[2024-02-08] MEDS: traZODone HCL 50 MG TABLET PO ×2 (20:00→22:19)
[2024-02-08] MEDS: Prazosin HCL 1 MG CAPSULE PO (20:01)
[2024-02-08] MEDS: OLANZapine 5 MG TABLET PO (20:02)
[2024-02-08] MEDS: Lurasidone HCl 20 MG TABLET PO (20:02)
[2024-02-08] MEDS: OLANZapine ODT 10 MG TAB.RAPDIS TRANSLINGU (22:19)
[2024-02-09] MEDS: clonazePAM 1 MG TABLET PO ×2 (00:05→08:04)
[2024-02-09 08:00] VITALS: BP 128/62; PULSE 122; RESP 18; TEMP 36.6; O2SAT 98
[2024-02-09] MEDS: Buprenorphine/Naloxone 12/3 mg FILM 1 FILM SUBLINGUAL (10:35)
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
[2024-02-09] MEDS: Naloxone HCl Nasal TAKE HOME 4 MG SPRAY 8 MG NOSTRILALT (11:15)
== END 2024-02-09 11:59 | disposition home or self-care (01) | DRG 754 ==
LOC: HO.ED 20:38 → HO.PM5 02-06 22:26
PROVIDERS: Student in an Organized Health Care Education/Training Program; Admitting Provider Psychiatry & Neurology Psychiatry; Emergency Provider Student in an Organized Health Care Education/Training Program; Visit Provider Psychiatry & Neurology Psychiatry
DX: F43.21 Adjustment disorder with depressed mood (principal); R45.851 Suicidal ideations; F11.20 Opioid dependence, uncomplicated; F19.10 Other psychoactive substance abuse, uncomplicated; F43.10 Post-traumatic stress disorder, unspecified; F17.210 Nicotine dependence, cigarettes, uncomplicated; Z91.51 Personal history of suicidal behavior; Z71.6 Tobacco abuse counseling; Z79.899 Other long term (current) drug therapy
CPT/HCPCS: 36415; 80053; 80061; 80143; 80179; 80307; 81001; 81025; 83036; 84702; 85025; 87086; 93005; 99285; S9485

== ENCOUNTER 2024-02-06 22:11 | Outpatient (BNV) | payer MEDICAID, SELFPAY | END 2024-02-06 22:16 | PROVIDERS: Admitting Provider Psychiatry & Neurology Psychiatry; Emergency Provider Student in an Organized Health Care Education/Training Program; Visit Provider Internal Medicine | DX: R07.9 Chest pain, unspecified (principal); R94.31 Abnormal electrocardiogram [ECG] [EKG] | CPT/HCPCS: 93010 ==

== ENCOUNTER → 2024-02-06 22:11 | Outpatient (BNV) | payer OTHER, SELFPAY | PROVIDERS: Admitting Provider Psychiatry & Neurology Psychiatry; Emergency Provider Student in an Organized Health Care Education/Training Program; Visit Provider Psychiatry & Neurology Psychiatry | DX: F19.10 Other psychoactive substance abuse, uncomplicated (principal); F43.11 Post-traumatic stress disorder, acute | CPT/HCPCS: 99232; 99233 ==